=== PATIENT | male | born 1980 | race Caucasian/White ===

== ENCOUNTER 2018-08-29 00:02 | Emergency (ER) | payer OTHER ==
[~2018-08-29] VITALS: Ht 172.7 cm; Wt 71.2 kg
[~2018-08-29 00:02] MED LIST: BENADRYL25 MG PO; ZYRTEC10 M3 PO
[2018-08-29] MEDS ORDERED: PANADOL EXTRA500 MG (00:43)
[2018-08-29] MEDS ORDERED: PNEU16DI2 (00:43)
== END 2018-08-29 08:05 | disposition home or self-care (01) ==
LOC: ER 00:02
DX: B34.9 Viral infection, unspecified (principal)